=== PATIENT | male | born 1970 | race Two or more races ===

== ENCOUNTER 2020-03-25 12:43 | Emergency (ER) | payer OTHER ==
[~2020-03-25] VITALS: Ht 177.8 cm; Wt 115.0 kg
[2020-03-25] MEDS ORDERED: IBUPROFEN 600 MG TABLET PO ONE (13:30)
[2020-03-25] MEDS ORDERED: SODIUM CHLORIDE FLUSH 10ML SYR IVF ONE (13:30)
[2020-03-25] MEDS ORDERED: SODIUM CHLORIDE 0.9% 1,000ML IVBOLUS ONE (13:30)
[2020-03-25 13:58] LABS: BASOPHILS % (AUTO) 2 % (0-1); EOSINOPHILS % (AUTO) 0 % (1-7); LYMPHOCYTES % (AUTO) 35 % (22-44); MEAN CORPUSCULAR HEMOGLOBIN 31.5 pg (27.5-34.5); MEAN CORPUSCULAR HGB CONC 34.3 g/dL (33.2-36.2); MEAN PLATELET VOLUME 9.2 fL (7.4-10.4); MONOCYTES % (AUTO) 11 % (2-9); NEUTROPHILS % (AUTO) 53 % (42-75); PLATELET COUNT 139 x10^3/uL (130-400); RED BLOOD COUNT 5.31 x10^6/uL (4.38-5.82); RED CELL DISTRIBUTION WIDTH 13.5 % (9.4-14.8)
[2020-03-25 14:03] LABS: MD NO
[2020-03-25] MEDS ORDERED: IBUPROFEN 200 MG TABLET ONE (14:05)
[2020-03-25 14:06] LABS: ANION GAP 4 mmol/L (5-15); CALCIUM 8.2 mg/dL (8.5-10.1); CHLORIDE 104 mmol/L (98-107)
--- NOTE | 2020-03-25 14:27 | NUR ---
PIV STARTED AND NS BOLUS HUNG. PT MEDICATED PER EMAR. PT RESTING WITH NO COMPLAINTS. SON AT BEDSIDE. CALL BUTTON IN LAP.
[2020-03-25] MEDS ORDERED: ACET325T14 PO (14:34)
[2020-03-25] MEDS ORDERED: CEFTRIAXONE PMX 1GM/50ML 50 ML IVPB ONE (15:00)
[2020-03-25] MEDS ORDERED: CEFTRIAXONE PMX 1GM/50ML 50 ML ONE (15:09)
[2020-03-25 15:55] VITALS: BP 124/74
== END 2020-03-25 16:44 | disposition home or self-care (01) ==
LOC: ED 16:00
DX: J18.9 Pneumonia, unspecified organism (principal); R00.0 Tachycardia, unspecified
CPT/HCPCS: 36415; 71045; 80048; 82040; 83605; 84145; 85025; 87040; 93005; 96361; 96365; 99285; J0696; J7030

== ENCOUNTER 2020-03-29 13:46 | Emergency (ER) | payer OTHER ==
[~2020-03-29] VITALS: Ht 177.8 cm; Wt 109.7 kg
[~2020-03-29 13:46] MED LIST: ACET325T14 PO
--- NOTE | 2020-03-29 14:30 | NUR ---
pt presents to ED with c/o cough, mild sob, and chest pain present with coughing for one week. pt seen here for these symptoms 03/25, pt given rx for doxycycline with diagnosis of pneumonia. pt states symptoms have not gotten worse but are not better. EKG taken in triage. all monitors in place. pt a&o, resps even and unlabored, able to speak in full sentences without difficulty. RED Vik at bedside for initial assessment and covid swab.
--- NOTE | 2020-03-29 14:45 | NUR ---
Report received from PEACE Andrews. Plan of care discussed
[2020-03-29] MEDS ORDERED: ACETAMINOPHEN 500 MG TABLET ONE (14:46)
[2020-03-29] MEDS ORDERED: KETOROLAC 30 MG/1 ML ONE (14:47)
[2020-03-29] MEDS ORDERED: ONDANSETRON 2MG/ML, 2ML ONE (14:47)
[2020-03-29] MEDS ORDERED: ACETAMINOPHEN 500 MG TABLET PO ONE (15:00)
[2020-03-29] MEDS ORDERED: ONDANSETRON 2MG/ML, 2ML IVPush ONE (15:00)
[2020-03-29] MEDS ORDERED: KETOROLAC 30 MG/1 ML IVPush ONE (15:00)
[2020-03-29] MEDS ORDERED: SODIUM CHLORIDE 0.9% 1,000ML IVBOLUS ONE (15:00)
[2020-03-29 15:04] LABS: BASOPHILS % (AUTO) 1 % (0-1); EOSINOPHILS % (AUTO) 0 % (1-7); LYMPHOCYTES % (AUTO) 23 % (22-44); MEAN CORPUSCULAR HEMOGLOBIN 30.8 pg (27.5-34.5); MEAN CORPUSCULAR HGB CONC 33.9 g/dL (33.2-36.2); MONOCYTES % (AUTO) 14 % (2-9); NEUTROPHILS % (AUTO) 63 % (42-75); PLATELET COUNT 230 x10^3/uL (130-400); RED BLOOD COUNT 5.22 x10^6/uL (4.38-5.82); RED CELL DISTRIBUTION WIDTH 13.8 % (9.4-14.8)
--- NOTE | 2020-03-29 15:05 | NUR ---
PIV placed, medicated per emar, tolerated well
--- NOTE | 2020-03-29 15:09 | NUR ---
report given to PEACE Lees who is assuming care.
[2020-03-29 15:10] LABS: ALBUMIN 2.9 g/dL (3.4-5.0); ANION GAP 5 mmol/L (5-15); CALCIUM 8.3 mg/dL (8.5-10.1); CHLORIDE 105 mmol/L (98-107); CREATININE 0.91 mg/dL (0.7-1.3)
--- NOTE | 2020-03-29 15:10 | NUR ---
THIS RN SPOKE WITH NEGAR BAEZ. BLOOD CULTURES TO BE DRAWN PRIOR TO ABX
[2020-03-29 15:12] LABS: MD NO
[2020-03-29] MEDS ORDERED: AZITHROMYCIN 500 MG in SODIUM CHLORIDE 0.9% 250 ML IV ONE (15:30)
[2020-03-29] MEDS ORDERED: CEFTRIAXONE PMX 1GM/50ML 50 ML IV ONE (15:30)
--- NOTE | 2020-03-29 15:41 | NUR ---
SPOKE WITH MD DAFNE, WHO STATES NO NEED FOR BLOOD CULTURES PRIOR TO ABX ADMIN. WILL CONTINUE WITH ABX ADMIN AT THIS TIME
[2020-03-29] MEDS ORDERED: CEFTRIAXONE PMX 1GM/50ML 50 ML ONE (15:42)
--- NOTE | 2020-03-29 16:38 | NUR ---
IV ABX INFUSING, PATIENT WILL BE DISCHARGED AFTER ABX COMPLETED
--- NOTE | 2020-03-29 17:21 | NUR ---
PATIENT RESTING ON GURNEY, RESPIRATIONS EVEN AND UNLABORED, VSS, NADN. APPROX 75ML STILL IN ABX TO INFUSE
--- NOTE | 2020-03-29 17:54 | NUR ---
IN ABX COMPLETED, PIV REMOVED. PATIENT TO GET DRESSED AND DISCHARGED
--- NOTE | 2020-03-29 18:10 | NUR ---
Patient/Caregiver given discharge instructions and they have confirmed that they understand the instructions. Patient ambulatory with steady gait.
[2020-03-29 18:18] VITALS: BP 112/70
== END 2020-03-29 18:20 | disposition home or self-care (01) ==
LOC: ED 14:36
DX: J15.9 Unspecified bacterial pneumonia (principal); Z20.828 Contact with and (suspected) exposure to other viral communicable diseases; R94.31 Abnormal electrocardiogram [ECG] [EKG]; F17.210 Nicotine dependence, cigarettes, uncomplicated
CPT/HCPCS: 36415; 71045; 80048; 82040; 83605; 84145; 85025; 87635; 93005; 96365; 96368; 96375; 99285; J0456; J0696; J1885; J2405; J7030; J7050

== ENCOUNTER 2021-01-02 13:02 | Emergency (ER) | payer OTHER ==
[~2021-01-02] VITALS: Ht 182.9 cm; Wt 108.0 kg
[2021-01-02] MEDS ORDERED: SODIUM CHLORIDE 0.9% 1,000ML IVBOLUS ONE (14:00)
[2021-01-02] MEDS ORDERED: SODIUM CHLORIDE FLUSH 10ML SYR IVF ONE (14:00)
[2021-01-02 14:24] LABS: BASOPHILS % (AUTO) 1 % (0-1); EOSINOPHILS % (AUTO) 0 % (1-7); LYMPHOCYTES % (AUTO) 20 % (22-44); MEAN CORPUSCULAR HEMOGLOBIN 31.9 pg (27.5-34.5); MEAN CORPUSCULAR HGB CONC 34.4 g/dL (33.2-36.2); MEAN PLATELET VOLUME 9.3 fL (7.4-10.4); MONOCYTES % (AUTO) 9 % (2-9); NEUTROPHILS % (AUTO) 70 % (42-75); PLATELET COUNT 204 x10^3/uL (130-400); RED BLOOD COUNT 5.35 x10^6/uL (4.38-5.82)
[2021-01-02 14:25] LABS: ALBUMIN 3.7 g/dL (3.4-5.0); ANION GAP 8 mmol/L (5-15); CHLORIDE 108 mmol/L (98-107)
[2021-01-02 14:29] LABS: TROPONIN I < 0.015 ng/mL (0.000-0.045)
[2021-01-02] MEDS ORDERED: LORazepam 2 MG/ML, 1ML IVPush ONE (14:30)
[2021-01-02] MEDS ORDERED: LORazepam 2 MG/ML, 1ML ONE (14:43)
[2021-01-02 15:44] LABS: MICROSCOPIC NOT IND
[2021-01-02] MEDS ORDERED: LORazepam 1MG TABLET ONE (15:50)
[2021-01-02 15:52] VITALS: BP 177/102
[2021-01-02] MEDS ORDERED: LORazepam 1MG TABLET PO ONE (16:00)
== END 2021-01-02 16:12 | disposition home or self-care (01) ==
LOC: ED 14:04
DX: F10.139 Alcohol abuse with withdrawal, unspecified (principal); Y90.0 Blood alcohol level of less than 20 mg/100 ml; R42 Dizziness and giddiness; R06.02 Shortness of breath; R00.0 Tachycardia, unspecified; E11.9 Type 2 diabetes mellitus without complications
CPT/HCPCS: 71045; 80048; 81003; 82040; 82962; 83880; 84484; 85025; 93005; 96361; 96374; 99285; J2060; J7030